=== PATIENT | female | born 1955 | race African-American/Black ===

== ENCOUNTER 2018-04-19 23:13 | Emergency (ER) | payer OTHER ==
[~2018-04-19] VITALS: Ht 162.6 cm; Wt 100.0 kg
[~2018-04-19 23:13] MED LIST: AMLO10TA80 PO; ASPI-986 PO; ATOR-2 PO; CARV25TA47 PO; CLOP75TA33 PO; ESTR0.5T PO; FURO20TA4 PO; GABA-531 PO; GLIP5TAB12 PO; LOSA50TA20 PO; METF-414 PO; POTA10TA2 PO; VENL37.586 PO
[2018-04-20] MEDS ORDERED: SODIUM CHLORIDE 0.9% 1,000 ML IV ONE (00:29)
[2018-04-20] MEDS ORDERED: LORAZEPAM 2MG/ML CPJ IV ONE ×2 (01:15→05:00)
[2018-04-20 01:30] LABS: BASOPHILS % 0.7 % (0.0-2.0); EOSINOPHILS % 0.1 % (0.0-5.0); HEMATOCRIT. 48.1 % (36.0-48.0); HEMOGLOBIN. 15.8 g/dL (12.0-16.0); LYMPHOCYTES % 18.5 % (20.0-50.0); MEAN CORPUSCULAR HEMOGLOBIN 25.6 pg (28.0-32.0); MEAN CORPUSCULAR VOLUME 77.9 fL (81.0-99.0); MEAN PLATELET VOLUME 8.8 fl (7.4-10.4); MONOCYTES % 10.3 % (2.0-8.0); NEUTROPHILS % 70.4 % (40.0-76.0); PLATELET 337 x1000/uL (130-400); RED BLOOD CELL COUNT 6.18 mill/uL (4.2-5.4); RED CELL DISTRIBUTION WIDTH 14.9 % (11.6-14.6)
[2018-04-20 01:33] LABS: CHLORIDE 89 mEq/L (98-107)
[2018-04-20 01:34] LABS: INR 1.2; PROTHROMBIN TIME 12.3 sec (9.1-11.1)
[2018-04-20 01:37] LABS: ETHANOL BLOOD < 10 mg/dL
[2018-04-20 01:38] LABS: BETA HYDROXYBUTYRATE 0.2 mMol/L (0.0-0.3)
[2018-04-20 01:40] LABS: CREATINE KINASE 502 IU/L (26-192)
[2018-04-20 01:46] LABS: BG BASE EXCESS 0.1 mmol/L (-2.0-2.0); BG CARBOXYHEMOGLOBIN 0.9 % (0.5-1.5); BG DEOXYHEMOGLOBIN 4.5 % (0.0-5.0); BG FRACTION INSPIRED OXYGEN 21; BG HCO3 ACT 22.2 mmol/L (22.0-26.0); BG METHEMOGLOBIN 0.3 % (0.0-1.5); BG OXYGEN SATURATION 95.4 % (92.0-98.5); BG OXYHEMOGLOBIN 94.3 % (94.0-97.0); BG PCO2 29.6 mmHg (35.0-45.0); BG PH 7.492 (7.350-7.450); BG PO2 74.8 mmHg (75.0-100.0); BG SAMPLE SITE LEFT RADIAL; BG VENT MODE ROOM AIR
[2018-04-20 01:49] LABS: *BARBITURATES SCREEN URINE NEGATIVE (NEGATIVE); CLARITY URINE CLEAR (CLEAR); COLOR URINE AMBER (YELLOW); KETONES URINE 1+ (NEGATIVE); LEUKOCYTE ESTERASE URINE NEGATIVE (NEGATIVE); NITRITE URINE NEGATIVE (NEGATIVE); OCCULT BLOOD URINE 3+ (NEGATIVE); PH URINE 6.5 (4.5-8.0); PROTEIN URINE 4+ (NEGATIVE); SPECIFIC GRAVITY URINE 1.028 (1.005-1.030)
[2018-04-20 01:50] LABS: *AMPHETAMINES SCREEN URINE NEGATIVE (NEGATIVE); *BENZODIAZEPINES SCREEN URINE NEGATIVE (NEGATIVE); *COCAINE SCREEN URINE NEGATIVE (NEGATIVE); CANNABINOID URINE SCREEN PRESUMTIVE POSITIVE (NEGATIVE); METHADONE URINE SCREEN NEGATIVE (NEGATIVE); OPIATES URINE SCREEN NEGATIVE (NEGATIVE); PHENCYCLIDINE URINE SCREEN NEGATIVE (NEGATIVE)
[2018-04-20] MEDS ORDERED: CEFTRIAXONE 1 G PREMIX 50 ML IV SCH (04:00)
[2018-04-20 06:50] VITALS: BP 152/73
== END 2018-04-20 07:24 | disposition short-term general hospital (02) ==
LOC: ER 23:13
DX: A41.9 Sepsis, unspecified organism (principal); G93.49 Other encephalopathy; R47.81 Slurred speech; E11.65 Type 2 diabetes mellitus with hyperglycemia; I10 Essential (primary) hypertension; D72.829 Elevated white blood cell count, unspecified; Z88.2 Allergy status to sulfonamides; Z79.84 Long term (current) use of oral hypoglycemic drugs
CPT/HCPCS: 36415; 36600; 70450; 71045; 80053; 80305; 80307; 80329; 81003; 82010; 82140; 82375; 82550; 82805; 82962; 83605; 84145; 84443; 84484; 85025; 85610; 87040; 87186; 93005; 96361; 96365; 96375; 99291; J0696; J2060; J7030; Z7610

== ENCOUNTER 2019-09-05 20:31 | Inpatient (IN) | payer OTHER ==
[~2019-09-05] VITALS: Ht 172.7 cm; Wt 105.2 kg
[~2019-09-05 20:31] MED LIST changes: -LOSA50TA20 PO; +LOSA50TA41 PO
[2019-09-05 22:43] LABS: BASOPHILS % 0.7 % (0.0-2.0); HEMATOCRIT. 37.5 % (36.0-48.0); HEMOGLOBIN. 12.3 g/dL (12.0-16.0); LYMPHOCYTES % 17.3 % (20.0-50.0); MEAN CORPUSCULAR VOLUME 78.9 fL (81.0-99.0); MEAN PLATELET VOLUME 9.6 fl (7.4-10.4); MONOCYTES % 7.7 % (2.0-8.0); NEUTROPHILS % 73.3 % (40.0-76.0); PLATELET 321 x1000/uL (130-400); RED BLOOD CELL COUNT 4.75 mill/uL (4.2-5.4); RED CELL DISTRIBUTION WIDTH 15.9 % (11.6-14.6)
[2019-09-05 22:47] LABS: CHLORIDE 102 mEq/L (98-107)
[2019-09-05 22:58] LABS: PARTIAL THROMBOPLASTIN TIME 25.6 sec (23.4-31.0)
[2019-09-05] MEDS ORDERED: PIPERACILLIN/TAZOBACTAM 3.375GM/50ML PREMIX IV ONE (23:15)
[2019-09-05] MEDS ORDERED: VANCOMYCIN 1 G PREMIX 200 ML IV SCH (23:15)
[2019-09-05] MEDS ORDERED: PIPERACILLIN/TAZ 3.375G PREMIX 50 ML IV NR (23:30)
[2019-09-06] MEDS ORDERED: SODIUM CHLORIDE 0.9% 1,000 ML IV SCH (00:06)
[2019-09-06] MEDS ORDERED: ACETAMINOPHEN 325MG TABLET PO PRN ×2 (00:15)
[2019-09-06] MEDS ORDERED: DIPHENHYDRAMINE 50MG/ML VIAL IV PRN (00:15)
[2019-09-06] MEDS ORDERED: ONDANSETRON HCL 4MG/2ML INJ IV PRN (00:15)
[2019-09-06] MEDS ORDERED: MAGNESIUM/ALUMINUM HYDROXIDE/SIMETHICONE 30ML UDC PO PRN (00:15)
[2019-09-06] MEDS ORDERED: DEXTROSE 50% WATER 50ML SYRINGE IV PRN (00:15)
[2019-09-06] MEDS ORDERED: SODIUM CHLORIDE 0.9% 500 ML IV ONE (01:45)
[2019-09-06] MEDS ORDERED: LORAZEPAM 1MG TABLET PO PRN (01:45)
[2019-09-06] MEDS ORDERED: HYDRALAZINE 20MG/ML VIAL IV PRN (01:45)
[2019-09-06] MEDS: INSULIN LISPRO 100 UNITS/ML SUBCUT SCH ×5 (02:24→21:00)
[2019-09-06 03:27] LABS: CLARITY URINE CLOUDY (CLEAR); COLOR URINE YELLOW (YELLOW); KETONES URINE NEGATIVE (NEGATIVE); LEUKOCYTE ESTERASE URINE NEGATIVE (NEGATIVE); NITRITE URINE NEGATIVE (NEGATIVE); OCCULT BLOOD URINE NEGATIVE (NEGATIVE); PROTEIN URINE NEGATIVE (NEGATIVE); SPECIFIC GRAVITY URINE 1.015 (1.005-1.030)
[2019-09-06 03:39] LABS: *AMPHETAMINES SCREEN URINE NEGATIVE (NEGATIVE); *BARBITURATES SCREEN URINE NEGATIVE (NEGATIVE); *BENZODIAZEPINES SCREEN URINE NEGATIVE (NEGATIVE); *COCAINE SCREEN URINE NEGATIVE (NEGATIVE); METHADONE URINE SCREEN NEGATIVE (NEGATIVE); OPIATES URINE SCREEN PRESUMTIVE POSITIVE (NEGATIVE)
[2019-09-06 03:40] LABS: CANNABINOID URINE SCREEN PRESUMTIVE POSITIVE (NEGATIVE); PHENCYCLIDINE URINE SCREEN NEGATIVE (NEGATIVE)
[2019-09-06] MEDS: HYDROCODONE/ACETAMINOPHEN 5/325MG TABLET PO PRN ×3 (04:57→17:50)
[2019-09-06 05:43] VITALS: BP 174/88
[2019-09-06 05:45] VITALS: BP 174/88
[2019-09-06] MEDS: BLOOD SUGAR DIAGNOSTIC STRIP TEST SCH ×4 (06:29→21:00)
[2019-09-06] MEDS: GABAPENTIN 300MG CAPSULE PO SCH ×3 (06:29→21:05)
[2019-09-06] MEDS ORDERED: GLIPIZIDE 10MG TABLET PO SCH (07:00)
[2019-09-06 08:00] VITALS: BP 157/95
[2019-09-06] MEDS ORDERED: CEFTRIAXONE 1 G PREMIX 50 ML IV SCH (08:00)
[2019-09-06] MEDS: DULOXETINE HCL 20MG DR CAPSULE PO SCH (08:46)
[2019-09-06] MEDS: ENOXAPARIN 30MG/0.3ML SYR SUBCUT SCH ×2 (08:47→21:05)
[2019-09-06] MEDS: OMEPRAZOLE 20MG CAPSULE EXTENDED RELEASE PO SCH ×2 (08:54→21:05)
[2019-09-06] MEDS: ISOSORBIDE MONONITRATE 60MG TABLET SR 24HR PO SCH (08:54)
[2019-09-06] MEDS: CARVEDILOL 12.5MG TABLET PO SCH ×2 (08:54→21:04)
[2019-09-06] MEDS: AMLODIPINE 10MG TABLET PO SCH (08:54)
[2019-09-06] MEDS: ASPIRIN 81MG EC TABLET PO SCH (08:55)
[2019-09-06] MEDS: GLIPIZIDE 10MG TABLET PO SCH ×2 (08:58→17:50)
[2019-09-06 12:00] VITALS: BP 117/66
[2019-09-06 12:10] LABS: BASOPHILS % 0.7 % (0.0-2.0); EOSINOPHILS % 0.8 % (0.0-5.0); HEMATOCRIT. 36.2 % (36.0-48.0); HEMOGLOBIN. 12.2 g/dL (12.0-16.0); LYMPHOCYTES % 25.7 % (20.0-50.0); MEAN CORPUSCULAR HEMOGLOBIN 26.5 pg (28.0-32.0); MEAN CORPUSCULAR VOLUME 78.5 fL (81.0-99.0); MEAN PLATELET VOLUME 8.5 fl (7.4-10.4); NEUTROPHILS % 64.8 % (40.0-76.0); PLATELET 321 x1000/uL (130-400); RED BLOOD CELL COUNT 4.62 mill/uL (4.2-5.4); RED CELL DISTRIBUTION WIDTH 15.4 % (11.6-14.6)
[2019-09-06 12:38] LABS: CHLORIDE 103 mEq/L (98-107)
[2019-09-06 12:45] LABS: BG BASE EXCESS -0.1 mmol/L (-2.0-2.0); BG CARBOXYHEMOGLOBIN 0.3 % (0.5-1.5); BG DEOXYHEMOGLOBIN 2.1 % (0.0-5.0); BG FRACTION INSPIRED OXYGEN 40; BG HCO3 ACT 23.9 mmol/L (22.0-26.0); BG METHEMOGLOBIN 0.2 % (0.0-1.5); BG OXYGEN SATURATION 97.9 % (92.0-98.5); BG OXYHEMOGLOBIN 97.4 % (94.0-97.0); BG PCO2 36.7 mmHg (35.0-45.0); BG PH 7.431 (7.350-7.450); BG PO2 106.5 mmHg (75.0-100.0); BG SAMPLE SITE RIGHT RADIAL; BG TOTAL HEMOGLOBIN 11.9 g/dL (12.0-18.0); BG VENT MODE NASAL CANNULA
[2019-09-06] MEDS: ALBUTEROL 6.7GM HFA INHALER ORI SCH ×2 (15:20→21:45)
[2019-09-06 20:00] VITALS: BP 110/72
[2019-09-06] MEDS: ATORVASTATIN CALCIUM 40MG TABLET PO SCH (21:04)
[2019-09-06] MEDS: AMPICILLIN SOD/SULBACTAM NA 3 G in SODIUM CHLORIDE 0.9% 100 ML IV SCH (21:05)
[2019-09-06] MEDS ORDERED: INSULIN GLARGINE UD 100 UNITS/ML SYR SUBCUT SCH (22:00)
[2019-09-06] MEDS: INSULIN GLARGINE UD 100 UNITS/ML SYR SUBCUT SCH (22:14)
[2019-09-07] VITALS: BP 122/69
[2019-09-07] MEDS: HYDROCODONE/ACETAMINOPHEN 5/325MG TABLET PO PRN ×3 (00:11→20:47)
[2019-09-07] MEDS: ALBUTEROL 6.7GM HFA INHALER ORI SCH ×3 (01:00→12:11)
[2019-09-07] MEDS: AMPICILLIN SOD/SULBACTAM NA 3 G in SODIUM CHLORIDE 0.9% 100 ML IV SCH ×4 (02:06→20:45)
[2019-09-07 04:00] VITALS: BP 129/74
[2019-09-07] MEDS: OMEPRAZOLE 20MG CAPSULE EXTENDED RELEASE PO SCH ×2 (06:09→20:46)
[2019-09-07] MEDS: BLOOD SUGAR DIAGNOSTIC STRIP TEST SCH ×4 (06:09→21:00)
[2019-09-07] MEDS: GABAPENTIN 300MG CAPSULE PO SCH ×3 (06:09→20:46)
[2019-09-07] MEDS: INSULIN LISPRO 100 UNITS/ML SUBCUT SCH ×4 (07:04→21:00)
[2019-09-07] MEDS: GLIPIZIDE 10MG TABLET PO SCH ×2 (07:04→17:08)
[2019-09-07 08:00] VITALS: BP 138/76
[2019-09-07] MEDS ORDERED: CEFTRIAXONE 1 G PREMIX 50 ML IV SCH (08:00)
[2019-09-07] MEDS ORDERED: IOHEXOL-300 100 ML BOTTLE ONE (09:14)
[2019-09-07] MEDS: AMLODIPINE 10MG TABLET PO SCH (09:34)
[2019-09-07] MEDS: ENOXAPARIN 30MG/0.3ML SYR SUBCUT SCH ×2 (09:34→20:47)
[2019-09-07] MEDS: DULOXETINE HCL 20MG DR CAPSULE PO SCH (09:34)
[2019-09-07] MEDS: ISOSORBIDE MONONITRATE 60MG TABLET SR 24HR PO SCH (09:35)
[2019-09-07] MEDS: CARVEDILOL 12.5MG TABLET PO SCH ×2 (09:35→20:46)
[2019-09-07] MEDS: CLOPIDOGREL 75MG TABLET PO SCH (09:35)
[2019-09-07] MEDS: ASPIRIN 81MG EC TABLET PO SCH (09:35)
[2019-09-07 11:00] LABS: T4 FREE 1.23 ng/dL (0.76-1.46)
[2019-09-07 12:00] VITALS: BP 122/78
[2019-09-07 16:00] VITALS: BP 158/93
[2019-09-07 19:40] LABS: CREATINE KINASE 137 IU/L (26-192)
[2019-09-07 19:42] LABS: CREATINE KINASE MB FRACTION 2.3 ng/mL (0.5-3.6)
[2019-09-07 20:00] VITALS: BP 155/94
[2019-09-07] MEDS: ATORVASTATIN CALCIUM 40MG TABLET PO SCH (20:46)
[2019-09-07] MEDS: ALBUTEROL (0.083%) 2.5MG/3ML NEB HHN SCH (21:03)
[2019-09-07] MEDS: INSULIN GLARGINE UD 100 UNITS/ML SYR SUBCUT SCH (22:29)
[2019-09-08] VITALS: BP 156/81
[2019-09-08 01:04] LABS: CREATINE KINASE 141 IU/L (26-192)
[2019-09-08 01:05] LABS: CREATINE KINASE MB FRACTION 2.3 ng/mL (0.5-3.6)
[2019-09-08] MEDS: ALBUTEROL (0.083%) 2.5MG/3ML NEB HHN SCH ×4 (01:18→21:18)
[2019-09-08] MEDS: AMPICILLIN SOD/SULBACTAM NA 3 G in SODIUM CHLORIDE 0.9% 100 ML IV SCH ×4 (02:55→20:11)
[2019-09-08 04:00] VITALS: BP 145/77
[2019-09-08] MEDS: HYDROCODONE/ACETAMINOPHEN 5/325MG TABLET PO PRN ×3 (06:09→22:08)
[2019-09-08] MEDS: OMEPRAZOLE 20MG CAPSULE EXTENDED RELEASE PO SCH ×2 (06:09→20:13)
[2019-09-08] MEDS: GABAPENTIN 300MG CAPSULE PO SCH ×3 (06:09→22:02)
[2019-09-08] MEDS: BLOOD SUGAR DIAGNOSTIC STRIP TEST SCH ×4 (06:09→20:14)
[2019-09-08] MEDS: INSULIN LISPRO 100 UNITS/ML SUBCUT SCH ×4 (06:20→20:43)
[2019-09-08 06:28] LABS: BASOPHILS % 0.7 % (0.0-2.0); EOSINOPHILS % 1.4 % (0.0-5.0); HEMATOCRIT. 34.3 % (36.0-48.0); HEMOGLOBIN. 11.6 g/dL (12.0-16.0); LYMPHOCYTES % 32.1 % (20.0-50.0); MEAN CORPUSCULAR HEMOGLOBIN 26.5 pg (28.0-32.0); MEAN CORPUSCULAR VOLUME 78.6 fL (81.0-99.0); MEAN PLATELET VOLUME 8.7 fl (7.4-10.4); MONOCYTES % 9.6 % (2.0-8.0); NEUTROPHILS % 56.2 % (40.0-76.0); PLATELET 311 x1000/uL (130-400); RED BLOOD CELL COUNT 4.37 mill/uL (4.2-5.4); RED CELL DISTRIBUTION WIDTH 15.3 % (11.6-14.6)
[2019-09-08 06:48] LABS: CHLORIDE 104 mEq/L (98-107)
[2019-09-08 06:58] LABS: CREATINE KINASE 126 IU/L (26-192)
[2019-09-08] MEDS: GLIPIZIDE 10MG TABLET PO SCH ×2 (07:41→16:24)
[2019-09-08 08:00] VITALS: BP 148/83
[2019-09-08] MEDS: ENOXAPARIN 30MG/0.3ML SYR SUBCUT SCH ×2 (08:24→20:14)
[2019-09-08] MEDS: CLOPIDOGREL 75MG TABLET PO SCH (08:25)
[2019-09-08] MEDS: ISOSORBIDE MONONITRATE 60MG TABLET SR 24HR PO SCH (08:25)
[2019-09-08] MEDS: CARVEDILOL 12.5MG TABLET PO SCH ×2 (08:25→20:13)
[2019-09-08] MEDS: AMLODIPINE 10MG TABLET PO SCH (08:25)
[2019-09-08] MEDS: ASPIRIN 81MG EC TABLET PO SCH (08:25)
[2019-09-08] MEDS: DULOXETINE HCL 20MG DR CAPSULE PO SCH (08:26)
[2019-09-08 12:00] VITALS: BP 156/86
[2019-09-08 16:00] VITALS: BP 159/89
[2019-09-08 20:00] VITALS: BP 178/93
[2019-09-08] MEDS: CLONIDINE 0.1MG TABLET PO PRN (20:12)
[2019-09-08] MEDS: ATORVASTATIN CALCIUM 40MG TABLET PO SCH (22:01)
[2019-09-08] MEDS: INSULIN GLARGINE UD 100 UNITS/ML SYR SUBCUT SCH (22:03)
[2019-09-09] VITALS: BP 151/89
[2019-09-09 04:00] VITALS: BP 163/88
[2019-09-09] MEDS: GABAPENTIN 300MG CAPSULE PO SCH ×3 (06:13→21:39)
[2019-09-09] MEDS: BLOOD SUGAR DIAGNOSTIC STRIP TEST SCH ×4 (06:16→21:40)
[2019-09-09] MEDS: HYDROCODONE/ACETAMINOPHEN 5/325MG TABLET PO PRN ×3 (06:16→21:39)
[2019-09-09] MEDS: GLIPIZIDE 10MG TABLET PO SCH ×2 (06:54→17:18)
[2019-09-09] MEDS: INSULIN LISPRO 100 UNITS/ML SUBCUT SCH ×4 (06:56→21:37)
[2019-09-09 08:00] VITALS: BP 169/88
[2019-09-09] MEDS: ALBUTEROL (0.083%) 2.5MG/3ML NEB HHN SCH ×3 (09:12→20:00)
[2019-09-09] MEDS: ENOXAPARIN 30MG/0.3ML SYR SUBCUT SCH ×2 (09:25→21:39)
[2019-09-09] MEDS: DULOXETINE HCL 20MG DR CAPSULE PO SCH (09:25)
[2019-09-09] MEDS: ASPIRIN 81MG EC TABLET PO SCH (09:26)
[2019-09-09] MEDS: AMLODIPINE 10MG TABLET PO SCH (09:26)
[2019-09-09] MEDS: ISOSORBIDE MONONITRATE 60MG TABLET SR 24HR PO SCH (09:26)
[2019-09-09] MEDS: CLOPIDOGREL 75MG TABLET PO SCH (09:26)
[2019-09-09] MEDS: FAMOTIDINE 20MG TABLET PO SCH ×2 (09:26→17:18)
[2019-09-09] MEDS: CARVEDILOL 12.5MG TABLET PO SCH ×2 (09:27→21:00)
[2019-09-09] MEDS ORDERED: REGADENOSON 0.4 MG/5 ML IV NR (10:45)
[2019-09-09 12:00] VITALS: BP 144/82
[2019-09-09 16:00] VITALS: BP 160/92
[2019-09-09] MEDS: CLONIDINE 0.1MG TABLET PO PRN (17:19)
[2019-09-09 20:00] VITALS: BP 129/76
[2019-09-09] MEDS: INSULIN GLARGINE UD 100 UNITS/ML SYR SUBCUT SCH (21:38)
[2019-09-09] MEDS: ATORVASTATIN CALCIUM 40MG TABLET PO SCH (21:40)
[2019-09-10] VITALS: BP 144/87
[2019-09-10] MEDS: ALBUTEROL (0.083%) 2.5MG/3ML NEB HHN SCH ×2 (02:43→10:33)
[2019-09-10 04:00] VITALS: BP_SYST 159; BP_DIAS 91; BP_DIAS 97
[2019-09-10] MEDS: GABAPENTIN 300MG CAPSULE PO SCH (06:00)
[2019-09-10] MEDS: GLIPIZIDE 10MG TABLET PO SCH (07:15)
[2019-09-10] MEDS: INSULIN LISPRO 100 UNITS/ML SUBCUT SCH ×2 (07:15→13:14)
[2019-09-10] MEDS: BLOOD SUGAR DIAGNOSTIC STRIP TEST SCH ×2 (07:42→11:45)
[2019-09-10 08:00] VITALS: BP 172/89
[2019-09-10] MEDS ORDERED: REGADENOSON 0.4 MG/5 ML IV ONE (08:14)
[2019-09-10] MEDS: DULOXETINE HCL 20MG DR CAPSULE PO SCH ×2 (09:00→10:17)
[2019-09-10] MEDS: HYDROCODONE/ACETAMINOPHEN 5/325MG TABLET PO PRN (10:11)
[2019-09-10] MEDS: AMLODIPINE 10MG TABLET PO SCH (10:18)
[2019-09-10] MEDS: ASPIRIN 81MG EC TABLET PO SCH (10:18)
[2019-09-10] MEDS: CARVEDILOL 12.5MG TABLET PO SCH (10:18)
[2019-09-10] MEDS: CLOPIDOGREL 75MG TABLET PO SCH (10:18)
[2019-09-10] MEDS: ISOSORBIDE MONONITRATE 60MG TABLET SR 24HR PO SCH (10:18)
[2019-09-10] MEDS: FAMOTIDINE 20MG TABLET PO SCH (10:18)
[2019-09-10] MEDS: ENOXAPARIN 30MG/0.3ML SYR SUBCUT SCH (10:19)
[2019-09-10 12:00] VITALS: BP 133/81
[2019-09-10 13:43] VITALS: BP 133/81
== END 2019-09-10 16:55 | disposition home or self-care (01) | DRG 871 ==
LOC: ER 20:31 → 7WST 23:59 → ENRESERV 09-06 04:35 → 5WST 09-06 22:42
PROVIDERS: ADMIT Internal Medicine; ATTEND Internal Medicine
DX: A41.9 Sepsis, unspecified organism (principal); G93.41 Metabolic encephalopathy; E87.2 Acidosis; G90.8 Other disorders of autonomic nervous system; E11.40 Type 2 diabetes mellitus with diabetic neuropathy, unspecified; I25.10 Atherosclerotic heart disease of native coronary artery without angina pectoris; I50.9 Heart failure, unspecified; I11.0 Hypertensive heart disease with heart failure; R07.89 Other chest pain; D72.810 Lymphocytopenia; E66.01 Morbid (severe) obesity due to excess calories; E78.00 Pure hypercholesterolemia, unspecified; E78.5 Hyperlipidemia, unspecified; F32.9 Major depressive disorder, single episode, unspecified; R09.02 Hypoxemia; S39.012A Strain of muscle, fascia and tendon of lower back, initial encounter; X58.XXXA Exposure to other specified factors, initial encounter; Y93.89 Activity, other specified; Y92.89 Other specified places as the place of occurrence of the external cause; Y99.8 Other external cause status; Z82.49 Family history of ischemic heart disease and other diseases of the circulatory system; Z83.3 Family history of diabetes mellitus; Z95.5 Presence of coronary angioplasty implant and graft; I25.2 Old myocardial infarction; Z88.2 Allergy status to sulfonamides; Z79.82 Long term (current) use of aspirin; Z79.84 Long term (current) use of oral hypoglycemic drugs; Z79.899 Other long term (current) drug therapy; Z03.818 Encounter for observation for suspected exposure to other biological agents ruled out
CPT/HCPCS: 36415; 36600; 71045; 74177; 78452; 80048; 80053; 80061; 80305; 81003; 82375; 82550; 82553; 82805; 82962; 83036; 83605; 83880; 84145; 84439; 84443; 84484; 85025; 85379; 93005; 93017; 93306; 94640; 97161; 99291; A9500; J0295; J0696; J1650; J1815; J2543; J2785; J3370; J7050; Q9967; U0003-CS

== ENCOUNTER 2020-09-11 22:05 | Emergency (ER) | payer OTHER ==
[~2020-09-11] VITALS: Ht 167.6 cm; Wt 82.0 kg
[~2020-09-11 22:05] MED LIST changes: -GABA-531 PO; +GABA-532 PO
[2020-09-11] MEDS ORDERED: METHYLPREDNISOLONE SOD SUCC 125 MG/2 ML VIAL IV STA (22:39)
[2020-09-11] MEDS ORDERED: ALBUTEROL (0.083%) 2.5MG/3ML NEB HHN STA (22:39)
[2020-09-11] MEDS ORDERED: IPRATROPIUM BROMIDE (0.02%) 0.5MG/2.5ML NEB HHN STA (22:39)
[2020-09-11 22:52] LABS: BASOPHILS % 1.1 % (0.0-2.0); EOSINOPHILS % 0.5 % (0.0-5.0); HEMATOCRIT. 40.9 % (36.0-48.0); HEMOGLOBIN. 13.6 g/dL (12.0-16.0); LYMPHOCYTES % 23.3 % (20.0-50.0); MEAN CORPUSCULAR HEMOGLOBIN 25.6 pg (28.0-32.0); MEAN CORPUSCULAR VOLUME 76.9 fL (81.0-99.0); MEAN PLATELET VOLUME 8.2 fl (7.4-10.4); MONOCYTES % 6.1 % (2.0-8.0); PLATELET 394 x1000/uL (130-400); RED BLOOD CELL COUNT 5.32 mill/uL (4.2-5.4); RED CELL DISTRIBUTION WIDTH 15.3 % (11.6-14.6)
[2020-09-11 22:59] LABS: CHLORIDE 103 mEq/L (98-107)
[2020-09-11] MEDS ORDERED: ACETAMINOPHEN 325MG TABLET PO ONE (23:30)
[2020-09-12] MEDS ORDERED: AMLODIPINE 10MG TABLET PO ONE (00:45)
[2020-09-12] MEDS ORDERED: AZITHROMYCIN 500 MG TABLET PO ONE (01:30)
[2020-09-12] MEDS ORDERED: CEFTRIAXONE 1 G PREMIX 50 ML IV ONE (01:30)
[2020-09-12] MEDS ORDERED: FUROSEMIDE 20MG/2ML VIAL IVP ONE (02:00)
[2020-09-12] MEDS ORDERED: HYDRALAZINE 20MG/ML VIAL IV ONE (02:00)
[2020-09-12 03:22] VITALS: BP 152/98
[2020-09-12] MEDS ORDERED: IOHEXOL-350 100 ML BOTTLE ONE (04:26)
== END 2020-09-12 06:08 | disposition short-term general hospital (02) ==
LOC: ER 22:05
DX: J44.1 Chronic obstructive pulmonary disease with (acute) exacerbation (principal); I11.0 Hypertensive heart disease with heart failure; I50.9 Heart failure, unspecified; E11.9 Type 2 diabetes mellitus without complications; Z20.822 Contact with and (suspected) exposure to COVID-19; Z88.2 Allergy status to sulfonamides
CPT/HCPCS: 36415; 71045; 71275; 80053; 82962; 83735; 83880; 84484; 85025; 93005; 94640; 96365; 96375; 99285; C9803; J0360; J0696; J1940; J2930; Q9967; U0003; U0005; Z7610

== ENCOUNTER 2024-06-14 11:48 | Emergency (ER) | payer OTHER ==
[~2024-06-14] VITALS: Ht 165.1 cm; Wt 86.0 kg
[~2024-06-14 11:48] MED LIST changes: -ESTR0.5T PO; +ESTR0.5T2 PO; +GABA-1180 PO; -GABA-532 PO; -GLIP5TAB12 PO; +GLIP5TAB22 PO; +POTA-216 PO; -POTA10TA2 PO
[2024-06-14 11:50] VITALS: O2SAT 99
[2024-06-14 12:28] LABS: BASOPHILS % 0.6 % (0.0-2.0); DIFFERENTIAL COMMENT 0; EOSINOPHILS % 0.7 % (0.0-5.0); HEMATOCRIT. 38.8 % (36.0-48.0); LYMPHOCYTES % 14.3 % (20.0-50.0); MEAN CORPUSCULAR HEMOGLOBIN 24.4 pg (28.0-32.0); MEAN CORPUSCULAR HGB CONC 30.9 g/dL (31.0-37.0); MEAN CORPUSCULAR VOLUME 79.1 fL (81.0-99.0); MEAN PLATELET VOLUME 8.3 fl (7.4-10.4); MONOCYTES % 7.5 % (2.0-8.0); NEUTROPHILS % 76.9 % (40.0-76.0); PLATELET 396 x1000/uL (130-400); RED BLOOD CELL COUNT 4.91 mill/uL (4.2-5.4); RED CELL DISTRIBUTION WIDTH 15.6 % (11.6-14.6); WHITE BLOOD COUNT 12.1 x1000/uL (4.5-11.0)
[2024-06-14 12:42] LABS: CHLORIDE 103 mEq/L (98-107); POTASSIUM 3.1 mEq/L (3.5-5.1); SODIUM 139 mEq/L (136-145)
[2024-06-14 12:43] LABS: CALCIUM 10.6 mg/dL (8.7-10.4); CARBON DIOXIDE 23 mEq/L (21-32)
[2024-06-14] MEDS: ASPIRIN 325MG EC TABLET PO ONE (12:46)
[2024-06-14 12:48] LABS: CREATININE 1.1 mg/dL (0.6-1.0); GLUCOSE 250 mg/dL (70-105); UREA NITROGEN BLOOD 23 mg/dL (9-23)
[2024-06-14 12:49] LABS: TROPONIN I HIGH SENSITIVITY 9 ng/L (3.0-34)
[2024-06-14 12:56] LABS: INR 1.1; PARTIAL THROMBOPLASTIN TIME 26.7 sec (23.4-31.0); PROTHROMBIN TIME 11.4 sec (9.6-11.0)
[2024-06-14] MEDS: NITROGLYCERIN 0.4MG TABLET SL SL ONE (13:51)
[2024-06-14 16:10] VITALS: BP 160/102; PULSE 79; RESP 14; TEMP 36.6; O2SAT 99
== END 2024-06-14 16:34 | disposition short-term general hospital (02) ==
LOC: ER 11:48 → CANBEDREQ 13:45 → ER 16:34
DX: I44.0 Atrioventricular block, first degree (principal); E87.6 Hypokalemia; I11.0 Hypertensive heart disease with heart failure; I50.9 Heart failure, unspecified; E11.9 Type 2 diabetes mellitus without complications; Z88.2 Allergy status to sulfonamides; Z79.899 Other long term (current) drug therapy; Z79.82 Long term (current) use of aspirin
CPT/HCPCS: 36415; 71045; 80048; 83880; 84484; 85025; 93005; 99291